=== PATIENT | female | born 1975 | race Two or more races ===

== ENCOUNTER 2017-06-15 09:27 | Emergency (ER) | payer BC ==
[2017-06-15 10:01] VITALS: BP 111/63
--- NOTE | 2017-06-15 11:25 | UC ---
Esequiel Belcher Nilda, scribed for Constance Reno DO on 06/15/17 at 1036 . Lower Extremity/Ankle HPI - HPI Summary HPI Summary: This patient is a 30 year old F presenting to [facility] with a chief complaint of left first toe pain since yesterday. The patient rates the pain 4/10 in severity. Symptoms aggravated by walking, and alleviated by nothing. Patient denies fever, chills, N/V, CP, SOB, cough, abd pain, rash, and recent injury. Patient states similar previous episode. She notes she has been exercising more often. NKDA. - History of Current Complaint Chief Complaint: UCLowerExtremity Stated Complaint: toe pain Time Seen by Provider: 06/15/17 10:11 Hx Obtained From: Patient Hx Last Menstrual Period: 05/28/17 Onset/Duration: Sudden Onset, Lasting Days, Still Present Severity Currently: Moderate Pain Intensity: 4 Pain Scale Used: 0-10 Numeric Aggravating Factor(s): Ambulation Alleviating Factor(s): Nothing Able to Bear Weight: Yes - Allergies/Home Medications Allergies/Adverse Reactions: Allergies Allergy/AdvReac Type Severity Reaction Status Date / Time No Known Allergies Allergy Verified 06/15/17 10:01 Home Medications: Home Medications Ferrous Sulfate [Iron] 1 tab PO DAILY 06/15/17 [History Confirmed 06/15/17] Multivitamin [Daily Multiple Vitamin] 1 tab PO DAILY 06/15/17 [History Confirmed 06/15/17] PMH/Surg Hx/FS Hx/Imm Hx Previously Healthy: Yes Endocrine History: Other Other Endocrine History: Negative DM for 40s Other Cardiovascular History: Negative CAD for 40s - Surgical History Surgical History: Yes Surgery Procedure, Year, and Place: C SECTIONSx2 - Family History Known Family History: Negative: Cardiac Disease, Hypertension, Diabetes - Social History Alcohol Use: Occasionally Substance Use Type: None Smoking Status (MU): Never Smoked Tobacco - Immunization History Most Recent Tetanus Shot: UTD Review of Systems Constitutional: Other - negative fever, chills Skin: Other - negative rash Respiratory: Other - negative SOB, cough Cardiovascular: Other - negative CP Gastrointestinal: Other - negative N/V, abd pain Musculoskeletal: Other: - left first toe pain; negative recent injury All Other Systems Reviewed And Are Negative: Yes Physical Exam Triage Information Reviewed: Yes Vital Signs: Initial Vital Signs Temp 99.2 F 02/19/18 09:56 Pulse 78 06/15/17 09:56 Resp 18 06/15/17 09:56 BP 111/63 06/15/17 09:56 Pulse Ox 100 06/15/17 09:56 Vital Signs Reviewed: Yes - Additional Comments Appearance: Well-Appearing, No Pain Distress, Well-Nourished Eyes: conjunctiva clear, no discharge ENT: Hearing grossly normal, no muffled/hoarse voice. Neck: Normal, Supple Respiratory/Lung Sounds: Lungs clear, Normal breath sounds, No respiratory distress, No accessory muscle use Cardiovascular: RRR, No murmur Musculoskeletal: Normal Neurological: Alert, muscle tone normal Psychiatric:Normal, age appropriate behavior Skin:Warm, Dry, Normal color, Half a cm of redness, swelling, and tenderness on the lateral nailbed of the left great toe. Lower Extremity Course/Dx - Course Course Of Treatment: This patient is a 30 year old F presenting to [facility] with a chief complaint of left first toe pain since yesterday. The patient rates the pain 4/10 in severity. Symptoms aggravated by ambulation, and alleviated by nothing. Patient denies fever, chills, N/V, CP, SOB, cough, abd pain, rash, and recent injury. Patient states similar previous episode. She notes she has been exercising more often. NKDA. Medications reviewed. Allergies reviewed. Patient will be discharged with a Dx of paronychia and a follow up from PCP. The patient is agreeable with this plan. - Differential Dx/Diagnosis Provider Diagnoses: paronychia Discharge - Discharge Plan Condition: Stable Disposition: HOME Prescriptions: Cephalexin CAP* [Keflex CAP*] 500 mg PO BID #20 cap Patient Education Materials: Paronychia (ED) Referrals: Carri Chan MD [Primary Care Provider] - If Needed Additional Instructions: CEPHALEXIN: The antibiotic you've been prescribed is a member of the cephalosporin class. This type of antibiotic covers a wide variety of infections, including those of the skin, lungs, and urinary tract. It's useful for staph infections. This antibiotic is slightly similar to the penicillin family. In rare cases , a person who is allergic to penicillin will also be allergic to this medication. If you have had a severe allergic reaction to penicillin, and have not taken this antibiotic since that time, notify your doctor. Antibiotics which cover many germs ("broad spectrum" antibiotics) are more likely to cause diarrhea or "yeast" infections. Women prone to vaginal yeast problems may suffer an attack after taking this antibiotic. In infants, oral thrush (white spots "stuck" on the cheek) or yeast diaper rash may result. See your doctor if these problems occur. Call at once if you develop itching, hives , shortness of breath, or lightheadedness. ANYTIME YOU TAKE AN ANTIBIOTIC, IT IS IMPORTANT TO REPLENISH THE BODY'S SUPPLY OF "GOOD BACTERIA." YOU CAN GET GOOD BACTERIA FROM HIGH QUALITY CULTURED FOODS SUCH LOCAL YOGURT, SOUR KRAUT, CASTRO NATHEN, NATURALLY FERMENTED PICKLES AND PROBIOTIC DRINKS. YOU CAN ALSO GET GOOD BACTERIA FROM A PROBIOTIC SUPPLEMENT. DURING YOUR EXAM, WE NOTICED THAT YOU HAVE A FALLEN ARCH ON YOUR LEFT FOOT( PROBABLY ALSO ON YOUR RIGHT.) YOUR BODY APPEARS TO BE COMPENSATING FOR THAT DYSFUNCTION WITH EXTERNAL ROTATION OF YOUR GREAT TOE. THIS ROTATION OF YOUR BIG TOE MAY BE CAUSING YOUR BIG TOE NAIL TO BUMP INTO THE TOP OF YOUR SHOE THROUGH THE NAIL BED. THIS MAY BE THE REASON THAT YOU ARE HAVING RE-OCCURRING NAIL BED INFECTIONS. IT IS A GOOD IDEA TO CORRECT FLAT FEET. YOU WOULD LIKELY BENEFIT FROM OSTEOPATHIC MANIPULATION. WE RECOMMEND THAT YOU FIND AN OSTEOPATHIC PHYSICIAN IN YOUR AREA WHO DOES LYMPHATIC, MYOFACIAL AND VISCERAL WORK The documentation as recorded by the Esequiel ta Nilda accurately reflects the service I personally performed and the decisions made by me, Constance Reno DO.
== END 2017-06-15 11:04 | disposition home or self-care (01) ==
LOC: UCEAST 09:27
DX: L03.032 Cellulitis of left toe (principal)
CPT/HCPCS: 99212; G0463